=== PATIENT | female | born 2000 | race Caucasian/White ===

== ENCOUNTER 2019-03-08 15:20 | Outpatient (REF) | payer OTHER, SELFPAY ==
[2019-03-10 13:59] LABS: Chlamydia Result Negative (Negative)
[2019-03-10 14:22] LABS: GC Result Negative (Negative)
== END 2019-03-08 15:40 ==
LOC: LBN 15:20
PROVIDERS: PCP Pediatrics; Visit Provider Nurse Practitioner Family
DX: Z11.3 Encounter for screening for infections with a predominantly sexual mode of transmission (principal)
CPT/HCPCS: 87491; 87591

== ENCOUNTER 2019-03-14 09:07 | Emergency (ER) | payer OTHER, SELFPAY ==
[2019-03-14 09:11] VITALS: BP 119/71; PULSE 120; RESP 18; TEMP 38.2; O2SAT 97
--- NOTE | 2019-03-14 09:53 | ED.GENADUL_ITS ---
Discharge Plan Disposition Patient Disposition: HOME Condition: Stable Discharge Details Chief Complaint: Fever Clinical Impression: Acute streptococcal pharyngitis Primary Care Provider: Vikash Alvarado ED Provider: Cyndie Leo Home Meds and New Rx's Prescriptions: No Action fluconazole [Diflucan] 150 mg tablet 150 mg PO ONCE Qty: 1 RF: 0 Discharge Instructions Instructions: Pharyngitis (ED), Influenza (ED) Additional Instructions: You tested positive for streptococcal A pharyngitis (strep throat) which usually presents as only sore throat. As you also have a runny nose and cough, you may also have the flu. We did not test you for the flu today but you were given instructions for more information on influenza or the flu. There is treatment for the flu but it does not cure the symptoms, it only shortens the duration of the illness. Continue to alternate Tylenol and Motrin as needed and directed for pain. Drink plenty of fluids and get plenty of rest. Follow-up with primary care doctor within the next week for reevaluation. Return immediately to the emergency department if you develop any worsening or new concerning symptoms. Stand Alone Forms: School Release Discharge Data Discharge Date/Time-TO BE ENTERED AT DEPARTURE: 03/14/19 10:15 Discharge Physician: Cyndei Leo Medical Decision Making 18-year-old female with fever, cough, nasal congestion, sore throat for the past day. Patient appears uncomfortable but nontoxic. Temp 100.8 on arrival. Heart rate 120s. Normal respiratory rate and oxygen saturation. Posterior pharyngeal erythema and tonsillar edema but no obvious exudates. Uvula midline. No drooling, trismus or submandibular swelling. Lungs clear. Abdomen soft nontender without hepatosplenomegaly. No meningeal signs. Rapid strep done on arrival and positive. Discussed with patient that considering her other URI symptoms, we could also test for the flu but she declined this. Discussed that the treatment only shortens the course of the illness and she would rather continue symptomatic treatment. She is agreeable to Bicillin injection. She was also given a dose of Decadron and Tylenol p.o. Last menstrual period 2 weeks ago and denies chance of . She was advised to follow-up with primary care doctor and return here with any concerns. Medical Records Medical records reviewed: Yes I reviewed the patient's medical records. HPI General Mode of arrival: ambulatory . Date/Time Provider Initiated Documentation: 03/14/19 09:34 . Limitations to Documentation: no limitations . Information obtained by: patient . HPI Narrative: Patient is a 18-year-old female who presents with fever, nasal congestion, sore throat and cough for the past day. Denies any recent known sick contacts. She has been taking Tylenol and Motrin. No medication this morning. Denies any abdominal pain or vomiting. Related Data Home Medications Medication Instructions Recorded Confirmed fluconazole 150 mg tablet 150 mg PO ONCE #1 tab 03/08/19 03/14/19 Previous Rx's Medication Instructions Recorded fluconazole 150 mg tablet 150 mg PO ONCE #1 tab 03/08/19 Allergies Allergy/AdvReac Type Severity Reaction Status Date / Time shellfish derived AdvReac Unverified 03/14/19 09:28 General Stated Complaint: Fever ALESSIA: 3 Review of Systems All systems reviewed & are unremarkable except as noted in HPI and below Constitutional Constitutional: Reports as per HPI, Denies chills and Denies fever(s) Eyes Eyes: Denies blurry vision ENT Ears, Nose, Mouth, and Throat: Denies dizziness, Reports nasal congestion, Reports nasal discharge, Reports sore throat and Denies throat swelling Cardiovascular Cardiovascular: Denies chest pain and Denies dyspnea Respiratory Respiratory: Reports cough and Denies dyspnea Gastrointestinal Gastrointestinal: Denies abdominal pain, Denies diarrhea and Denies vomiting Genitourinary Genitourinary: Denies hematuria and Denies dysuria Musculoskeletal Musculoskeletal: Denies back pain and Denies numbness Integumentary/Breasts Skin/Breast: Denies lesions and Denies rash Neurologic Neurologic: Denies dizziness, Denies focal weakness and Denies numbness Allergic/Immunologic Allergic/Immunologic: Denies throat swelling [facility] Medical History Acne Irregular menses IT band syndrome Surgical History No significant past surgical history (Acute) Family History Mother Healthy adult on routine physical examination Father Essential hypertension Migraines outgrown Other Diabetes MGF Essential hypertension PGM Heart disease Hyperlipidemia Myocardial infarction PGM, MGF Brother Anxiety Grandmother Anesthesia complication PGM - uncertain what happened Social History Smoking/Tobacco Use Status: Never Alcohol Intake: never Drug use: Never Do you feel safe at home: Yes Do you feel safe in your relationship?: Yes Exam Const General: cooperative and healthy appearing Orientation: alert and awake HENMT Head: normal to inspection Ears: hearing grossly normal bilaterally, external ears normal and TM's normal bilaterally General nose exam: external nose normal Face and sinus: normal facial exam Mouth: oral mucosae normal Teeth and gingiva: dentition normal Throat: posterior oropharynx normal Eyes General: appearance normal, both eyes and all related structures Eyelids: eyelids normal Pupils: PERRL EOM: EOM intact bilaterally Neck Neck: normal visual inspection Lymphatic: no lymphadenopathy noted Chest Chest: normal inspection of the chest Resp Effort & Inspection: normal respiratory effort and able to speak in complete sentences Auscultation: clear to auscultation bilaterally Cardio Rate: regular rate Rhythm: regular rhythm GI Inspection: normal to inspection Palpation: soft, not firm, no guarding, no hepatosplenomegaly, no masses and nontender Auscultation: normal bowel sounds Back/Spine/Pelvis Back: no CVA tenderness Skin General skin exam: no rashes or lesions noted Neuro General: alert and awake Cognition: normal cognition Speech: speech normal Gait: normal gait Motor: muscle tone normal throughout Sensory Exam: no sensory deficits noted Extrem General: normal to inspection, full ROM and normal capillary refill Psych Appearance: grossly normal Mental Status: mental status grossly normal Speech and Movement: speech and movement normal Affect: normal affect Thought Process: normal Course Vital Signs Vital signs: Vital Signs Temperature 100.8 F H 03/14/19 09:11 Pulse 120 H 03/14/19 09:11 Respiratory Rate 18 03/14/19 09:11 Blood Pressure 119/71 03/14/19 09:11 Pulse Oximetry 97 03/14/19 09:11 Temperature 100.8 F H 03/14/19 09:11 Temperature Source Oral 03/14/19 09:11 Pulse 120 H 03/14/19 09:11 Respiratory Rate 18 03/14/19 09:11 Respiratory Effort Non-Labored 03/14/19 09:24 Blood Pressure 119/71 03/14/19 09:11 Pulse Oximetry 97 03/14/19 09:11 Oxygen Delivery Method Room Air 03/14/19 09:11 Oxygen Flow Rate 0 03/14/19 09:11 Pain Level 8 03/14/19 09:11 Lab/Test Results Lab/Test Results: POC Strep Test-EULA(Rapid) Start: 03/14/19 09:18 Freq: .Rapid Strep Test Status: Active Protocol: Document 03/14/19 09:25 SGL (Rec: 03/14/19 09:25 [facility] [place] [id number] Strep test-EULA(Rapid)-POC POC-Strep test-EULA (Rapid) Positive POC-Strep test-EULA (Rapid) Positive
[2019-03-14 09:59] VITALS: TEMP 38.2
[2019-03-14] MEDS: Acetaminophen 325 MG TAB 650 MG PO (09:59)
[2019-03-14] MEDS: Dexamethasone 10 MG/ML VIAL PO (10:00)
== END 2019-03-14 10:15 | disposition home or self-care (01) ==
PROVIDERS: Emergency Provider Physician Assistant; PCP Pediatrics
DX: J02.0 Streptococcal pharyngitis (principal)
CPT/HCPCS: 87880; 96372; 99284; 99283; J0561; J1100

== ENCOUNTER 2020-04-06 11:23 | Outpatient (REF) | payer OTHER, SELFPAY ==
[2020-04-10 14:22] LABS: Chlamydia Result Negative (Negative); GC Result Negative (Negative)
== END 2020-04-06 11:43 ==
LOC: LBN 11:23
PROVIDERS: PCP Student in an Organized Health Care Education/Training Program; Visit Provider Nurse Practitioner Family
DX: Z11.3 Encounter for screening for infections with a predominantly sexual mode of transmission (principal)
CPT/HCPCS: 87491; 87591

== ENCOUNTER 2020-06-22 03:17 | Outpatient (CLI) | payer OTHER, SELFPAY ==
[2020-06-23 12:53] LABS: COVID-19 RT-PCR UVMMC Result Negative (Negative)
== END 2020-06-22 03:18 | disposition home or self-care (01) ==
PROVIDERS: PCP Student in an Organized Health Care Education/Training Program; Visit Provider Student in an Organized Health Care Education/Training Program
DX: Z20.828 Contact with and (suspected) exposure to other viral communicable diseases (principal)
CPT/HCPCS: U0003

== ENCOUNTER 2020-12-13 16:26 | Outpatient (REF) | payer OTHER, SELFPAY ==
[2020-12-15 14:33] LABS: Chlamydia Result Negative (Negative); GC Result Negative (Negative)
== END 2020-12-13 16:27 | disposition home or self-care (01) ==
LOC: LBN 16:26
PROVIDERS: PCP Student in an Organized Health Care Education/Training Program; Visit Provider Obstetrics & Gynecology
DX: N89.8 Other specified noninflammatory disorders of vagina (principal); Z11.3 Encounter for screening for infections with a predominantly sexual mode of transmission
CPT/HCPCS: 87491; 87591; 87480; 87510; 87660

== ENCOUNTER 2022-04-17 15:46 | Outpatient (REF) | payer OTHER, SELFPAY | END 2022-04-17 15:47 | disposition home or self-care (01) | LOC: LBN 15:46 | PROVIDERS: PCP Student in an Organized Health Care Education/Training Program; Visit Provider Student in an Organized Health Care Education/Training Program | DX: J02.9 Acute pharyngitis, unspecified (principal); R50.9 Fever, unspecified | CPT/HCPCS: 87070 ==

== ENCOUNTER 2024-07-31 17:37 | Emergency (ER) | payer OTHER, SELFPAY ==
[2024-07-31 17:38] VITALS: BP 119/83; PULSE 88; RESP 16; TEMP 36.5; O2SAT 100
[2024-07-31 17:45] VITALS: BP 119/83; PULSE 88; RESP 16; TEMP 36.5; O2SAT 100
[2024-07-31] MEDS: Ibuprofen 600 MG TAB PO (18:22)
[2024-07-31] MEDS: diazePAM 5 MG TAB PO ×2 (18:22→19:55)
--- NOTE | 2024-07-31 22:58 | W.ED.GENAD ---
Discharge Plan Disposition Patient Disposition: Home Condition: Stable Discharge Details Clinical Impression: TMJ (temporomandibular joint syndrome) Primary Care Provider: Unknown,Unknown ED Provider: Bambi Ruiz Home Meds and New Rx's Prescriptions: New diazepam [Valium] 5 mg tablet 5 mg PO TID PRNQty: 6 0RF Continued sumatriptan succinate [Imitrex] 50 mg tablet See Rx Instructions PO .COMPLEX Qty: 10 1RF Rx Instructions: take 1 tab at onset of headache; if no relief may repeat 1 tab after at least 2 hrs; max = 4 tabs/24 hr PO rizatriptan [Maxalt-[employer] PACKER] 10 mg tablet,disintegrating See Rx Instructions PO .COMPLEX Qty: 20 1RF Rx Instructions: take 1 tab at onset of headache; if no relief may repeat 1 tab after at least 2 hrs; max = 3 tabs/24 hr PO clotrimazole 1 % cream 1 applic topical BID Qty: 30 0RF escitalopram oxalate 5 mg tablet 5 mg PO DAILY Patient Comments: TAKE 1 TABLET BY MOUTH EVERY DAY FOR ANXIETY. Discharge Instructions Instructions: Temporomandibular Joint (TMJ) Disorders (DC), TMJ Exercises Additional Instructions: Take Motrin 600 mg every 8 hours with food Stay away from any firm or solid foods Soft foods such as mashed potatoes macaroni and cheese spaghetti and regular fluids, soups You may take the Valium as needed for spasm, this medication can be addictive and you should not consume any alcohol or operate a vehicle for 8 hours after taking this medication Please be reevaluated should he have any new or worsening complaints Recommendation to call your dentist on Friday HPI General Date/Time Provider Initiated Documentation: 07/31/24 17:47. HPI Narrative: The patient is a 23-year-old female with left jaw pain. Pain began while chewing Chex Mix with chocolate, accompanied by jaw locking. She self-diagnosed with TMJ disorder. No trauma or similar past symptoms. She can close her mouth but has difficulty opening it, with a popping sensation. No fever or chills. Related Data Home Medications ?Medication ?Instructions ?Recorded ?Confirmed sumatriptan succinate 50 mg tablet See Rx Instructions PO .COMPLEX 01/02/20 07/31/24 (Imitrex) #10 tabs clotrimazole 1 % topical cream 1 applic topical BID #30 grams 12/13/20 07/31/24 rizatriptan 10 mg disintegrating See Rx Instructions PO .COMPLEX 02/23/21 07/31/24 tablet (Maxalt-[employer] PACKER) #20 tabs diazepam 5 mg tablet (Valium) 5 mg PO TID PRN #6 tabs 07/31/24 escitalopram oxalate 5 mg tablet 5 mg PO DAILY 07/31/24 07/31/24 Previous Rx's ?Medication ?Instructions ?Recorded sumatriptan succinate 50 mg tablet See Rx Instructions PO .COMPLEX 01/02/20 (Imitrex) #10 tabs clotrimazole 1 % topical cream 1 applic topical BID #30 grams 12/13/20 rizatriptan 10 mg disintegrating See Rx Instructions PO .COMPLEX 02/23/21 tablet (Maxalt-[employer] PACKER) #20 tabs diazepam 5 mg tablet (Valium) 5 mg PO TID PRN #6 tabs 07/31/24 Allergies Allergy/AdvReac Type Severity Reaction Status Date / Time amoxicillin Allergy Severe Skin Rash Verified 07/31/24 17:43 shellfish derived AdvReac Other (See Verified 07/31/24 17:43 Comment) General Stated Complaint: DentalOral ALESSIA: 4 Exam Narrative Exam Narrative: General Appearance: Alert and oriented, no acute distress. Vital signs: Within normal limits. HEENT: Mild trismus, symmetrical teeth closure, well-approximated jawline, lateral movement intact. Patent oropharynx, midline uvula. Respiratory: Within normal limits. Skin: Warm and dry, no rash. Neurological: Normal. Course Vital Signs Vital signs: Vital Signs Temperature 36.5 C 07/31/24 17:38 Pulse 88 07/31/24 17:38 Respiratory Rate 16 07/31/24 17:38 Blood Pressure 119/83 07/31/24 17:38 Pulse Oximetry 100 07/31/24 17:38 Temperature 36.5 C 07/31/24 17:45 Pulse 88 07/31/24 17:45 Respiratory Rate 16 07/31/24 17:45 Blood Pressure 119/83 07/31/24 17:45 Pulse Oximetry 100 07/31/24 17:45 Pain Level 8 07/31/24 18:24 Medical Decision Making Initial Assessment: 23-year-old female with left jaw pain after chewing. Self-diagnosed history of TMJ. No fever, chills, , or medication allergies. Difficulty opening mouth, feels like it pops. No additional trauma or similar past symptoms. Alert, oriented, no acute distress. Mild trismus, symmetrical teeth closure, well-approximated jawline, lateral movement intact, patent oropharynx, midline uvula. No clinical evidence of jaw dislocation, likely TMJ strain from chewing. ED Course: - Administered Valium 5 mg, warm compress, and ibuprofen. - Discomfort persists, low likelihood of dislocation. - Provided Valium for home use as needed. Final Assessment: TMJ disorder with significant tenderness likely due to chewing strain. Treatment included Valium, warm compress, and ibuprofen. Discomfort persists but dislocation unlikely. Clinical Impression: - TMJ disorder Disposition: - Discharge - Follow-Up: Consult dentist on Friday, return if symptoms worsen. Patient Education: Encouraged continued Motrin and soft diet until improvement. MDM Components Evaluation: - Number of Differential Diagnoses or Management Options: TMJ disorder, jaw dislocation - Amount and Complexity of Data Reviewed: Clinical examination - Risk of Complication and Morbidity or Mortality: Low risk of jaw dislocation, potential for persistent TMJ discomfort. Quality:[facility] Related Social Needs: No Data to Display PFSH All Active Problems (Updated 07/31/24 @ 19:45 by SHERICE Nagel) TMJ (temporomandibular joint syndrome) (Acute) Near syncope (Acute) 10/24/21 [facility] ER note SARS-CoV-2 positive (Acute ~04/20/21) Hx of candidal vulvovaginitis (Acute) Encounter for preventive care (Acute) Vaginal irritation (Acute) Left wrist pain (Acute) Fingers hurt, no numbness.. No known injury. 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 Started in HS w/ occular symptoms only, no pain.. Now occular symptoms develop into painful headaches requiring rest in dark room (1-4-6hrs)(2/day on occasion). Trial triptan [ ] Neuro [ ] Medical History (Updated 07/31/24 @ 19:45 by SHERICE Nagel) Acne IT band syndrome Irregular menses Surgical History H/O wisdom tooth extraction 1997 Family History Mother Healthy adult on routine physical examination Anxiety Hypertension Father Essential hypertension Migraines outgrown Anxiety Hypertension Other Essential hypertension PGM Heart disease Hyperlipidemia Myocardial infarction PGM, MGF Brother Anxiety Depression Grandmother Anesthesia complication PGM - uncertain what happened Maternal Grandfather Diabetes Social History Smoking/Tobacco Use Status: Never Smoking risk assessment performed?: Yes Alcohol Intake: current Alcohol Intake frequency: a few times a month Drug use: Never Substance use type: does not use Adopted: No Caregiver/Support person: No Foster care: No Household members: family and other Housing: apartment Number of Children: 0 Communication Needs: None Education Level: college Do you need help understanding health information?: Rarely current occupation: Student, 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
== END 2024-07-31 20:22 | disposition home or self-care (01) ==
PROVIDERS: Emergency Provider Physician Assistant
DX: M26.602 Left temporomandibular joint disorder, unspecified (principal); R68.84 Jaw pain
CPT/HCPCS: 99283